=== PATIENT | male | born 1935 | race Caucasian/White ===

== ENCOUNTER → 2018-02-17 09:39 | Outpatient (CLI) | payer MEDICARE, OTHER, SELFPAY ==
--- NOTE | 2018-02-17 11:12 | PFTCOMP ---
COMPLETE PULMONARY FUNCTION TEST INTERPRETATION Brief HPI: Patient is a 82 year old male, currently under the care of myself, who presents to [facility] for complete pulmonary function tests secondary to diagnosis of dyspnea. Respiratory therapist reports good effort and reproducible results. Interpretation: Forced expiration spirometry shows a very severe large airways obstructive ventilatory defect with an FEV1 of 33 % predicted. There is no significant bronchodilator response by ATS criteria. Spirograms are of good quality and plateau slowly, indicating slowly emptying areas of the lungs. The respiratory flow volume loop shows decreased expiratory flow rates at all lung volumes consistent with airway obstruction. Lung volumes by body plethysmography show a normal total lung capacity at 6.47 L, 95 % predicted. All other lung volumes are within normal limits. Diffusion capacity by carbon monoxide is decreased at 42 % predicted. The airway resistance is elevated. No previous pulmonary function tests were available for review. Impression: Irreversible very severe large airways obstructive ventilatory defect with a symmetric reduction and diffusing capacity, consistent with the diagnosis of advanced COPD.
--- NOTE | 2018-02-17 11:15 | PFTCOMP_ITS ---
COMPLETE PULMONARY FUNCTION TEST INTERPRETATION Brief HPI: Patient is a 82 year old male, currently under the care of myself, who presents to [facility] for complete pulmonary function tests secondary to diagnosis of dyspnea. Respiratory therapist reports good effort and reproducible results. Interpretation: Forced expiration spirometry shows a very severe large airways obstructive ventilatory defect with an FEV1 of 33 % predicted. There is no significant bronchodilator response by ATS criteria. Spirograms are of good quality and plateau slowly, indicating slowly emptying areas of the lungs. The respiratory flow volume loop shows decreased expiratory flow rates at all lung volumes consistent with airway obstruction. Lung volumes by body plethysmography show a normal total lung capacity at 6.47 L , 95 % predicted. All other lung volumes are within normal limits. Diffusion capacity by carbon monoxide is decreased at 42 % predicted. The airway resistance is elevated. No previous pulmonary function tests were available for review. Impression: Irreversible very severe large airways obstructive ventilatory defect with a symmetric reduction and diffusing capacity, consistent with the diagnosis of advanced COPD.
== END ==
PROVIDERS: Family Provider Internal Medicine Infectious Disease; PCP Internal Medicine Infectious Disease; Visit Provider Internal Medicine Critical Care Medicine
DX: R06.09 Other forms of dyspnea (principal)
CPT/HCPCS: 94060; 94726; 94729

== ENCOUNTER → 2018-02-28 12:11 | Outpatient (CLI) | payer MEDICARE, OTHER, SELFPAY ==
[2018-02-28 13:06] VITALS: PULSE 100; PULSE 111; PULSE 84; PULSE 89; PULSE 90; PULSE 91; PULSE 94; O2SAT 87; O2SAT 88; O2SAT 94; O2SAT 95; O2SAT 96; O2SAT 99
--- NOTE | 2018-02-28 13:11 | CPS ---
Addendum entered by Hiral Mccabe 03/03/18 06:41: ROOM AIR AT REST SPO2 96% ROOM AIR WITH AMBULATION SPO2 87% 2L AMBULATION SPO2 92% PATIENT FELT SOB WITH INCREASED WORK OF BREATHING WITHOUT O2 Original Note: Patient dropped to 87% in the last minute, but came up to high 90's with rest. Patient started to walk again and dropped to 88%. Patient was started on 2L of O2 and walked an additional almost 200 ft post test without resting and SpO2 greater than 92%. Ju[employer]al [employer]
--- NOTE | 2018-02-28 16:12 | WT_ITS ---
PSN 6 Minute Walk Test - 6 Minute Walk Test 6 Minute Walk Test: 6 Minute Walk Test PSN:6-Minute Walk Test Start: 02/28/18 13: 06 Freq: Status: Active Protocol: RESP.6MINW Document 02/28/18 13:06 RIGO (Rec: 02/28/18 13:10 RIGO [id number]) 6 Minute Walk Test Date Performed 02/28/18 Time Performed 12:38 Height 6 ft Weight: 91.138 kg Weight in Pounds 200.[address]: Andrea Palacios Assistive device used: None Pre-test Oxygen Delivery Method Room Air Pulse Ox (%) 96 Pulse Rate (60-100 beats/min) 84 Dyspnea Nica Scale (0-10) 1 Exertion Nica Scale (6-20) 6 1st minute Oxygen Delivery Method Room Air Pulse Ox (%) 95 Pulse Rate (60-100 beats/min) 100 Number of Rests Taken 1 2nd minute Oxygen Delivery Method Room Air Pulse Ox (%) 94 Pulse Rate (60-100 beats/min) 111 H Number of Rests Taken 1 3rd minute Oxygen Delivery Method Room Air Pulse Ox (%) 95 Pulse Rate (60-100 beats/min) 91 4th minute Oxygen Delivery Method Room Air Pulse Ox (%) 94 Pulse Rate (60-100 beats/min) 90 Number of Rests Taken 1 5th minute Oxygen Delivery Method Room Air Pulse Ox (%) 87 Pulse Rate (60-100 beats/min) 100 Number of Rests Taken 1 Reported Symptoms Increased Work of Breathing 6th minute Oxygen Delivery Method Room Air Pulse Ox (%) 88 Pulse Rate (60-100 beats/min) 94 Dyspnea Nica Scale (0-10) 5 Exertion Nica Scale (6-20) 14 Number of Rests Taken 1 Reported Symptoms Increased Work of Breathing Post-test Oxygen Delivery Method Room Air Pulse Ox (%) 99 Pulse Rate (60-100 beats/min) 89 Full Laps Walked 5 Partial Lap, Number of Tiles Walked 0 Total Distance Walked (ft) 295 - Interpretation Interpretation: The patient was able to ambulate only 295 feet over the course of 6 minutes with no assistive devices, but did require 5 breaks. Patient did desaturate as low as 87% in the fifth minute. Some reflexive tachycardia was noted throughout testing. These findings are consistent with a respiratory limitation exercise tolerance. - Recommendations Recommendations: The patient requires no supplemental oxygen at rest, which should be using 2 L nasal cannula with any exertion.
== END ==
PROVIDERS: Family Provider Internal Medicine Infectious Disease; PCP Internal Medicine Infectious Disease; Visit Provider Internal Medicine Critical Care Medicine
DX: R00.0 Tachycardia, unspecified (principal)
CPT/HCPCS: 94618

== ENCOUNTER 2018-05-16 06:46 | Day surgery (SDC) | payer MEDICARE, OTHER, SELFPAY ==
[2018-05-16] VITALS (9 sets, daily range): BP systolic 102–132; BP diastolic 70–76; PULSE 80–83; RESP 18; TEMP 36.1–36.8; O2SAT 93–98; BMI 23.6
[2018-05-16 07:20] LABS: Prothrombin Time Fingerstick 12.5 SEC (11.9-14.4)
--- NOTE | 2018-05-16 08:05 | RAD_ITS ---
STUDY: INTRAOPERATIVE IMAGING PROVIDED FOR KYPHOPLASTY OF THE L1 VERTEBRAE. REASON FOR EXAM: Male, 82 years old. Compression fracture of L1 vertebra. FLUOROSCOPY TIME (if supplied): (4:34) minutes/seconds TECHNIQUE: Imaging provided for kyphoplasty of the L1 vertebrae. COMPARISON: None. FINDINGS: Imaging provided for kyphoplasty of the L1 vertebrae. RAD/Spine 1 View Any Level IMPRESSION: Imaging provided for kyphoplasty of the L1 vertebrae. Electronically Signed: Celio Harrell MD at 10:17 EDT Tel [phone], Service support ,
--- NOTE | 2018-05-16 08:15 | BONBX_PTH ---
PATIENT: THEODORE DIEGO LOC: [facility] U#:[id number] AGE/SX: 82/M ROOM: RE05/16/[address]: Dr. Edgar Cevallos MD : [id number] BED: DIS: 05/16/2018 SPEC #: [id number] RECD: 05/16/18 09:51 STATUS: JORDY REJodi #: [id number] ELOINA: 05/16/18 08:[address]: Edgar Cevallos DEPT: SURGICAL PATHOLOGY RECD BY: Mark Marin ENTERED: 05/16/18 10:13 SP TYPE: Bone OTHR DR: Dr. Yo Rose MD Tissues: Vertebra, NOS Procedures: Decalcification bone/plaque Surgery Specimen Level V HEADER OPERATION: Kyphoplasty, L1 PRE-OP DIAGNOSIS: Compression fracture lumbar spine, degeneration lumbosacral intervertebral disc, lumbosacral spondylosis, lumbar radiculopathy TISSUE SUBMITTED: L1 vertebral body, biopsy MICROSCOPIC DIAGNOSIS L1 vertebral body, core biopsy: Focal reparative and reactive change. No evidence of malignancy. AM:nahun 05/19/18 MICROSCOPIC DESCRIPTION Slides are reviewed. GROSS DESCRIPTION Received in fixative is one container labeled with the patient's name and designated left L1 vertebral body biopsy. The specimen consists of an elongated piece of rey bone measuring 0.6 cm in length and 0.1 cm in diameter. The entire specimen is submitted in one cassette after decalcification. / LAILA:[place] 05/16/18 TC:5 CPT: 08446, 54671
[2018-05-16] MEDS: Bupivacaine Mpf 0.5% 30 ML VIAL (09:05)
[2018-05-16] MEDS: oxyCODONE 5 MG Tablet PO (10:51)
[2018-05-16] MEDS: Acetaminophen 325 MG Tablet PO (10:52)
--- NOTE | 2018-05-16 11:16 | OP.PCM_ITS ---
Problem List (1) Compression fracture of lumbar vertebra with delayed healing Status: Acute Qualifiers: Lumbar vertebra fracture level: L1 Report of Operation Date of Procedure: 05/16/18 Pre-Operative Diagnosis: Compression fracture of L1 vertebral body Post-Operative Diagnosis: Compression fracture of L1 vertebral body Surgery/Procedure Performed:: 1?kyphoplasty of L1 vertebral body 2-biopsy of L1 vertebral body. 3-fluoroscopic guidance Description of Surgical Findings:: PROCEDURES: 1. Fe balloon kyphoplasty at the L1 Level 2. Insertion of [place] HV-R bone cement under low pressure at the L1 Level 3. Bone biopsy at L1 4. Fluoroscopic guidance and interpretation of images PREOPERATIVE DIAGNOSES: Osteoporosis, compression fracture of L1 POSTOPERATIVE DIAGNOSES: Osteoporosis, compression fracture of L1 ANESTHESIA: MAC COMPLICATIONS: None BLOOD LOSS: Minimal PROCEDURE IN DETAIL: History and physical today was reviewed. Risks and benefits of procedure explained. The patient understood, agreed to procedure, informed consent was obtained. IV inserted per routine protocol. The patient was taken to the operating room, placed in the prone position with a pillow positioned underneath the chest. A 2 g of Ancef IV piggyback was infused per anesthesia. The upper and middle back area was prepped and draped in a sterile fashion using iodine x3. Under direct visualization with fluoroscopy with the C-arm, which brought into position on AP as well as lateral view at the L1 level., the L1 pedicle was then identified. In the view of the collapsed L1, a transpedicular approach to the vertebral body was appropriate. Starting on the left side at L1 level, an 11-gauge needle was advanced through the L1 pedicle through the junction of the pedicle and the vertebral body on the left side. Position was then confirmed on AP as well as lateral view. Following satisfactory placement of the needle to make sure it is further off the midline and interlaminar space. The stylet of the needle was then removed. A guide pen and then inserted through the 11-gauge trocar and advanced approximately 3 mm from the anterior cortex on the lateral view. AP and lateral images were then taken to verify position and trajectory of the needle. The needle was then removed leaving the guide pen in place. The introducer was then placed over the guide pen and advanced through the pedicle. Once the guidewire was at the junction of the pedicle and the vertebral body, a lateral image was taken to ensure that the cannula was positioned approximately 1 cm past the vertebral body and a lateral image was then taken to ensure correct position and through the cannula, a biopsy was then taken of the L1 vertebral body and sent for pathology , a drill was then advanced into the vertebral body under fluoroscopic guidance towards the anterior cortex creating a channel. The anterior cortex were then probed with guide pen to ensure no perforation in the anterior cortex. After completion of the entry into the vertebral body, a 30 mL inflatable bone tamp was then inserted through the cannula and advanced under direct fluoroscopic guidance into the vertebral body near the anterior cortex., The biopsy was then taken at the L1 level. After completion of the entry into the vertebral body, a balloon tamp utilizing radiopaque marker bands on the bone tamp were identified using AP and lateral images. Endplate movement was then noticed and approximately 5 mm of the height sikhism was achieved at L1 level. Under fluoroscopic imaging and a bone void filler, internal fixation was achieved through a low pressure injection of a [place] HV-R bone cement. The cavity was then filled with a total volume of 3.5 mL on the left side at L1. Once the cannula was removed and satisfactory hemostasis was maintained, and repeated AP as well as lateral view images were obtained to confirm no tracing at the posterior element with the cement, the incision as then closed with a 4-0 Vicryl at the skin. The patient was kept in the prone position for approximately 10 minutes post-cement injection. The patient was then turned into supine position , monitored briefly and returned to PACU. The patient was moving both of his lower extremities at the same time without any apparent neurological deficits. Throughout the procedure, there were no intraoperative complications, Motor as well as sensory exam was unchanged from prior to procedure. ESTIMATED BLOOD LOSS: Minimal less than 10 mL ASSESSMENT AND PLAN: This is a 82-year-old Male with compression fracture of L1, status post [place] balloon kyphoplasty at L1 and insertion of [place] HV-R bone cement under low pressure at L1 level and bone biopsy. The patient will continue his current medication. A prescription was given to the patient for Percocet 5/325 mg 1/2 to 1 tablets every 6 hours as needed for breakthrough pain. The patient will follow-up in approximately 1 week for re-evaluation.
== END 2018-05-16 11:08 | disposition home or self-care (01) ==
LOC: SDC 06:48 → AC 06:49
PROVIDERS: Family Provider Internal Medicine Infectious Disease; PCP Internal Medicine Infectious Disease; Visit Provider Anesthesiology Pain Medicine
PROC: (CPT 22514; principal; 2018-05-16 08:00)
DX: M48.56XA Collapsed vertebra, not elsewhere classified, lumbar region, initial encounter for fracture (principal); M51.17 Intervertebral disc disorders with radiculopathy, lumbosacral region; M47.27 Other spondylosis with radiculopathy, lumbosacral region; W08.XXXD Fall from other furniture, subsequent encounter; I48.91 Unspecified atrial fibrillation; J44.9 Chronic obstructive pulmonary disease, unspecified; I10 Essential (primary) hypertension; E78.00 Pure hypercholesterolemia, unspecified; M79.1 Myalgia; G25.81 Restless legs syndrome; N40.0 Benign prostatic hyperplasia without lower urinary tract symptoms; K21.9 Gastro-esophageal reflux disease without esophagitis; M81.0 Age-related osteoporosis without current pathological fracture; I25.2 Old myocardial infarction; Z79.01 Long term (current) use of anticoagulants; Z79.891 Long term (current) use of opiate analgesic; Z79.899 Other long term (current) drug therapy; Z95.1 Presence of aortocoronary bypass graft; Z95.0 Presence of cardiac pacemaker; Z87.891 Personal history of nicotine dependence
CPT/HCPCS: 22514; 36416; 72020; 76000; 85610; 88307; 88311; J7120

== ENCOUNTER → 2019-02-21 10:53 | Outpatient (CLI) | payer MEDICARE, OTHER, SELFPAY ==
[2019-02-20 14:19] VITALS: BMI 23.0
[2019-02-21 11:55] VITALS: PULSE 100; PULSE 104; PULSE 105; PULSE 112; PULSE 85; PULSE 88; PULSE 94; PULSE 97; O2SAT 90; O2SAT 91; O2SAT 93; O2SAT 94; O2SAT 95; O2SAT 97
--- NOTE | 2019-02-21 13:42 | WT_ITS ---
PSN 6 Minute Walk Test - 6 Minute Walk Test 6 Minute Walk Test: 6 Minute Walk Test PSN:6-Minute Walk Test Start: 02/21/19 11:55 Freq: Status: Active Protocol: RESP.6MINW Document 02/21/19 11:55 [facility] (Rec: 02/21/19 12:01 [facility] [id number]) 6 Minute Walk Test Date Performed 02/21/19 Time Performed 11:00 Height 6 ft Weight: 165 lb Weight in Pounds 165.[address]: Jennifer Estrada Assistive device used: None Pre-test Oxygen Delivery Method Room Air Pulse Ox (%) 94 Pulse Rate (60-100 beats/min) 85 Dyspnea Nica Scale (0-10) 3 Reported Symptoms Increased Work of Breathing 1st minute Oxygen Delivery Method Room Air Pulse Ox (%) 93 Pulse Rate (60-100 beats/min) 94 Dyspnea Nica Scale (0-10) 3 Reported Symptoms Increased Work of Breathing 2nd minute Oxygen Delivery Method Room Air Pulse Ox (%) 94 Pulse Rate (60-100 beats/min) 97 Dyspnea Nica Scale (0-10) 4 Exertion Nica Scale (6-20) 1 Reported Symptoms Increased Work of Breathing 3rd minute Oxygen Delivery Method Room Air Pulse Ox (%) 95 Pulse Rate (60-100 beats/min) 100 Dyspnea Nica Scale (0-10) 5 Number of Rests Taken 1 Reported Symptoms Increased Work of Breathing 4th minute Oxygen Delivery Method Room Air Pulse Ox (%) 90 Pulse Rate (60-100 beats/min) 104 H Dyspnea Nica Scale (0-10) 6 Number of Rests Taken 1 Reported Symptoms Increased Work of Breathing 5th minute Oxygen Delivery Method Room Air Pulse Ox (%) 91 Pulse Rate (60-100 beats/min) 105 H Dyspnea Nica Scale (0-10) 6 Number of Rests Taken 1 Reported Symptoms Increased Work of Breathing 6th minute Oxygen Delivery Method Room Air Pulse Ox (%) 90 Pulse Rate (60-100 beats/min) 112 H Dyspnea Nica Scale (0-10) 6 Reported Symptoms Increased Work of Breathing Post-test Oxygen Delivery Method Room Air Pulse Ox (%) 97 Pulse Rate (60-100 beats/min) 88 Dyspnea Nica Scale (0-10) 4 Reported Symptoms Increased Work of Breathing Full Laps Walked 5 Partial Lap, Number of Tiles Walked 34 Total Distance Walked (ft) 329 - Interpretation Interpretation: The patient ambulated 329 feet over the course of 6 minutes beginning on room air without assistive devices or breaks. Pretesting oxygen saturation on room air was noted to be 94%. With ambulation, the katie oxygen saturation was 90%. This testing indicates the presence of both impaired walk distance and significant exertional oxygen desaturation, consistent with a pulmonary limitation to exercise tolerance. - Recommendations Recommendations: There is no indication for the use of supplemental oxygen at this time. However, close interval follow-up is recommended, given the degree of oxygen desaturation noted during this study.
== END ==
PROVIDERS: Family Provider Internal Medicine Infectious Disease; PCP Internal Medicine Infectious Disease; Referring Provider Nurse Practitioner Acute Care; Visit Provider Nurse Practitioner Acute Care
DX: J96.11 Chronic respiratory failure with hypoxia (principal)
CPT/HCPCS: 94618

== ENCOUNTER → 2020-07-02 | Outpatient (CLI) | payer MEDICARE, OTHER, SELFPAY ==
[2019-11-27 13:14] VITALS: BMI 22.1
== END | disposition home or self-care (01) ==
LOC: LABSPEC 16:06
PROVIDERS: PCP Internal Medicine Infectious Disease; Referring Provider Urology; Visit Provider Urology
DX: R82.998 Other abnormal findings in urine (principal)
CPT/HCPCS: 87086; 87088